=== PATIENT | male | born 1960 | race Caucasian/White ===

== ENCOUNTER 2019-01-07 12:44 | Emergency (ER) | payer OTHER, SELFPAY ==
[2019-01-07 12:45] VITALS: BP 134/98; PULSE 73; RESP 16; TEMP 36.6; O2SAT 99; BMI 28.5
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
[2019-01-07 14:56] VITALS: BP 128/74; PULSE 69; RESP 16; O2SAT 99
== END 2019-01-07 14:56 | disposition home or self-care (01) ==
PROVIDERS: Emergency Provider Emergency Medicine; Family Provider Internal Medicine; PCP Internal Medicine
DX: S22.42XA Multiple fractures of ribs, left side, initial encounter for closed fracture (principal); S42.022A Displaced fracture of shaft of left clavicle, initial encounter for closed fracture; M54.2 Cervicalgia; V28.4XXA Motorcycle driver injured in noncollision transport accident in traffic accident, initial encounter; Y93.9 Activity, unspecified; Y92.9 Unspecified place or not applicable; Y99.9 Unspecified external cause status; K58.9 Irritable bowel syndrome, unspecified; Z79.899 Other long term (current) drug therapy
CPT/HCPCS: 71101; 73000; 73030; 99285

== ENCOUNTER → 2019-01-25 08:51 | Outpatient (CLI) | payer OTHER, SELFPAY ==
[2019-01-25 08:50] VITALS: BMI 28.5
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
== END ==
PROVIDERS: Family Provider Internal Medicine; PCP Internal Medicine; Referring Provider Physician Assistant; Visit Provider Physician Assistant
DX: S42.002A Fracture of unspecified part of left clavicle, initial encounter for closed fracture (principal); X58.XXXA Exposure to other specified factors, initial encounter; Y93.9 Activity, unspecified; Y92.9 Unspecified place or not applicable; Y99.9 Unspecified external cause status
CPT/HCPCS: 73000

== ENCOUNTER → 2019-02-28 09:52 | Outpatient (CLI) | payer OTHER, SELFPAY ==
[2019-02-28 09:46] VITALS: BMI 28.5
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
== END ==
PROVIDERS: Family Provider Internal Medicine; PCP Internal Medicine; Referring Provider Orthopaedic Surgery; Visit Provider Orthopaedic Surgery
DX: S42.022A Displaced fracture of shaft of left clavicle, initial encounter for closed fracture (principal); X58.XXXA Exposure to other specified factors, initial encounter; Y93.9 Activity, unspecified; Y92.9 Unspecified place or not applicable; Y99.9 Unspecified external cause status
CPT/HCPCS: 73000

== ENCOUNTER → 2020-02-20 08:52 | Outpatient (CLI) | payer OTHER, SELFPAY ==
[2019-02-28 09:46] VITALS: BMI 28.5
== END ==
PROVIDERS: PCP Internal Medicine; Referring Provider Internal Medicine; Visit Provider Internal Medicine
DX: R00.2 Palpitations (principal)
CPT/HCPCS: 93225; 93226